=== PATIENT | female | born 1975 | race Caucasian/White ===

== ENCOUNTER → 2017-05-11 08:52 | Outpatient (CLI) | payer OTHER, SELFPAY ==
--- NOTE | 2017-05-11 08:55 | MM_ITS ---
MM Dig screening mamm BI w/CAD CAD Screening ORDERING PHYSICIAN : Fortino Puri MD PATIENT AGE: 41 years GENDER: Female INDICATION: 41-year-old screening mammogram palpable area upper outer quadrant. Previous biopsies bilateral with scars right breast towards the right axillary tail and towards 8:00 breast. Left breast biopsy scar periareolar Family history: Paternal aunt with breast cancer TECHNIQUE: Standard CC and MLO images were obtained. R2 CAD reviewed. COMPARISON: Previous mammograms:February 2016 and January 2015 Also right mammogram from March 2013 studies. FINDINGS: Very dense breast bilaterally decreases sensitivity of mammography. However we see no dominant mass nor suspicious calcifications A nodule at the superior left breast with dense coarse calcifications is again seen and similar to previous studies. 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 RIGHT BREAST:Stable. Small ringlike metallic marker at the 6:00 right breast. Also clips at the right axilla from previous biopsy. Scarring and mild distortion at upper-outer quadrant from such as well. Appears to be most likely long-standing feature after reviewing all available studies. 4 small dense calcifications far superior right breast slight progression since last years study dense focal benign calcifications. Benign configuration & can be followed LEFT BREAST: 11 mm nodule at the superior left breast, measures similar in size to the 2014 study. There is been slight progressive of the coarse dense calcifications here. This is most compatible with a degenerating fibroadenoma ====IMPRESSION: ========= No significant new findings. Dense breast bilaterally Left breast. We again see the ~ 11 mm nodule axillary tail left breast. 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 Can be followed. However if if it should be more evident or progress clinically consider a palpable mass then ultrasound guided or biopsy or excisional biopsy to confirm benign character would be warranted Right breast. No significant new findings. A few dense benign appearing calcifications superiorly can be followed . BI-RADS Category: 2 Benign Finding(s) RECOMMENDED FOLLOW-UP: 1YR - 1 YEAR FOLLOW-UP Follow-up in not over one year recommended a but if palpable area should progress it may warrant interval evaluation (A letter has been sent to the patient regarding results of the study.)
== END ==
PROVIDERS: Family Provider Internal Medicine Adolescent Medicine; PCP Nurse Practitioner Family; Visit Provider Nurse Practitioner Obstetrics & Gynecology
DX: Z12.31 Encounter for screening mammogram for malignant neoplasm of breast (principal)
CPT/HCPCS: 77067

== ENCOUNTER → 2017-07-16 12:49 | Outpatient (CLI) | payer OTHER, SELFPAY ==
--- NOTE | 2017-07-16 12:52 | US_ITS ---
US extremity RT limited CLINICAL INDICATION: ITS.REASON: LUMP RT UPPER ARM ORDERING PHYSICIAN: Flower Marte PATIENT AGE: 41 years FINDINGS: There is reported palpable areas of both forearms . In the right anterior forearm, there is a 1.3 x 0.3 cm subcutaneous area of slight heterogeneous echogenicity. A similar area is noted in the left forearm anteriorly of 1.3 cm x 0.3 cm. This may be due to small lipomas. IMPRESSION: Possible small lipomas forearms
== END ==
PROVIDERS: Family Provider Internal Medicine Adolescent Medicine; PCP Nurse Practitioner Family; Visit Provider Nurse Practitioner Family
DX: R22.31 Localized swelling, mass and lump, right upper limb (principal); R22.32 Localized swelling, mass and lump, left upper limb
CPT/HCPCS: 76882

== ENCOUNTER → 2017-07-29 08:20 | Outpatient (CLI) | payer OTHER, SELFPAY ==
[2017-07-29 08:42] LABS: Basophils % 0.5 % (0.1-2.0); Eosinophils # 0.2 K/mm3 (0.0-0.4); Eosinophils % 3.6 % (0.1-12.0); Hematocrit 37.1 % (37.0-47.0); Hemoglobin 12.1 g/dL (12.2-16.2); Lymphocytes # 2.2 K/mm3 (0.7-4.5); Lymphocytes % 42.5 K/mm3 (10-50); Mean Corpuscular HGB Conc 32.5 g/dL (31.8-35.4); Mean Corpuscular Volume 95.3 fl (81-99); Mean Platelet Volume 8.6 fl (7.4-10.4); Monocytes # 0.3 K/mm3 (0.1-1.0); Monocytes % 6.5 % (1.7-9.3); Neutrophils # 2.4 K/mm3 (1.8-7.8); Neutrophils % 46.9 % (37.0-80.0); Platelet Count 317 K/mm3 (142-424); Red Blood Count 3.89 M/mm3 (4.20-5.40); Red Cell Distribution Width 12.5 % (11.5-17.5); White Blood Count 5.2 K/mm3 (4.8-10.8)
[2017-07-29 10:04] LABS: Alanine Aminotransferase 17 U/L (12-78); Albumin Level 3.5 gm/dL (3.4-5.0); Albumin/Globulin Ratio 0.9 (1.1-1.8); Alkaline Phosphatase 70 U/L (46-116); Aspartate Amino Transferase 14 U/L (15-37); Bilirubin,Total 0.2 mg/dL (0.2-1.0); Blood Urea Nitrogen 7 mg/dL (7-18); Carbon Dioxide 30 mmol/L (21.0-32.0); Chloride 104 mmol/L (98-107); Chol/HDL Ratio 2.5 (1-3.5); Cholesterol 136 mg/dL (140-200); Creatinine,Serum 0.66 mg/dL (0.55-1.02); Estimated Glomerular Filt Rate 99 ml/min (>60); GFR (African American) 119 ML/MIN (>60); Globulin 3.7 gm/dl (1.3-3.2); Glucose 90 mg/dL (74-106); HDL Cholesterol 54 mg/dL (29-89); LDL Cholesterol 71 mg/dL (0-130); Sodium 141 mmol/L (136-145); Total Protein,Serum 7.2 gm/dL (6.4-8.2); Triglycerides 56 mg/dL (30-200); VLDL Cholesterol 11 mg/dL (0-40)
== END ==
PROVIDERS: Visit Provider Nurse Practitioner Obstetrics & Gynecology
DX: Z01.419 Encounter for gynecological examination (general) (routine) without abnormal findings (principal); R53.83 Other fatigue; N93.9 Abnormal uterine and vaginal bleeding, unspecified
CPT/HCPCS: 36415; 80053; 80061; 85025

== ENCOUNTER → 2018-09-07 11:44 | Outpatient (CLI) | payer BC, SELFPAY ==
[2018-09-07 13:36] LABS: Alanine Aminotransferase 22 U/L (12-78); Albumin Level 3.6 gm/dL (3.4-5.0); Albumin/Globulin Ratio 0.9 (1.1-1.8); Alkaline Phosphatase 92 U/L (46-116); Anion Gap 12.7 mEq/L (5-15); Aspartate Amino Transferase 19 U/L (15-37); Bilirubin,Total 0.3 mg/dL (0.2-1.0); Blood Urea Nitrogen 7 mg/dL (7-18); Calcium 8.7 mg/dL (8.5-10.1); Carbon Dioxide 30 mmol/L (21.0-32.0); Chloride 101 mmol/L (98-107); Chol/HDL Ratio 2.6 (1-3.5); Cholesterol 133 mg/dL (140-200); Creatinine,Serum 0.84 mg/dL (0.55-1.02); Estimated Glomerular Filt Rate 74 ml/min (>60); GFR (African American) 90 ML/MIN (>60); Globulin 3.9 gm/dl (1.3-3.2); Glucose 84 mg/dL (74-106); HDL Cholesterol 52 mg/dL (29-89); LDL Cholesterol 67 mg/dL (0-130); Potassium 4.7 mmoL/L (3.5-5.1); Sodium 139 mmol/L (136-145); Total Protein,Serum 7.5 gm/dL (6.4-8.2); Triglycerides 72 mg/dL (30-200); VLDL Cholesterol 14 mg/dL (0-40)
== END ==
PROVIDERS: Visit Provider Nurse Practitioner Family
DX: Z00.00 Encounter for general adult medical examination without abnormal findings (principal); R42 Dizziness and giddiness
CPT/HCPCS: 36415; 80053; 80061

== ENCOUNTER → 2018-10-28 10:34 | Outpatient (CLI) | payer BC, SELFPAY ==
--- NOTE | 2018-10-28 10:37 | MM_ITS ---
PROCEDURE: MM DIG SCREENING MAMM BI W/CAD CLINICAL INDICATION: SCREENING There is a history of breast cancer in the patient's paternal aunt diagnosed at age 22. There has been previous biopsy on each breast for benign disease. COMPARISON: [facility] DIG MAMM-SCREEN JUSTO W/CAD from 03/06/2016 [facility] MM Dig screening mamm BI w/CAD from 05/11/2017 TECHNIQUE: Standard CC and MLO images were obtained. R2 CAD reviewed. FINDINGS: There is a markedly diffusely dense parenchymal pattern lessening the sensitivity of mammography. There is a biopsy clip right breast. There are surgical clips right axilla. There are benign-appearing microcalcifications right breast and there are benign-appearing macrocalcifications left breast. IMPRESSION: BI-RAD Category: FOLLOW-UP: (A letter has been sent to the patient regarding results of the study.) Dictated by: Dr. Olman Dsouza MD 11/02/2018 09:34 Signed by: <Electronically signed by Dr. Olman Dsouza MD in [place]> 11/02/2018 09:34
== END ==
PROVIDERS: PCP Nurse Practitioner Family; Visit Provider Nurse Practitioner Family
DX: Z12.31 Encounter for screening mammogram for malignant neoplasm of breast (principal)
CPT/HCPCS: 77067

== ENCOUNTER → 2019-09-14 08:01 | Outpatient (CLI) | payer BC, SELFPAY ==
--- NOTE | 2019-09-14 08:07 | XR_ITS ---
PROCEDURE: XR FOOT WT BEARING RT 3V CLINICAL INDICATION: pain COMPARISON: No exams were available for comparison FINDINGS: No fracture or dislocation. No lytic or blastic change. There is normal mineralization. The joint spaces are well-preserved. No significant degenerative/arthritic changes. No erosive changes evident. Other findings:There is a toe ring present obscuring the PIP joint of the 2nd digit. There is a type 1 os navicularis IMPRESSION: No acute findings. Dictated by: Reji Magana MD 09/14/2019 15:56 Electronically signed by Reji Magana MD in [place] 09/14/2019 15:56
--- NOTE | 2019-09-14 08:07 | XR_ITS ---
PROCEDURE: XR FOOT WT BEARING LT 3V CLINICAL INDICATION: pain COMPARISON: No exams were available for comparison FINDINGS: No fracture or dislocation. No lytic or blastic change. There is normal mineralization. The joint spaces are well-preserved. No significant degenerative/arthritic changes. No erosive changes evident. Other findings:None. IMPRESSION: No acute findings. Dictated by: Reji Magana MD 09/14/2019 15:57 Electronically signed by Reji Magana MD in [place] 09/14/2019 15:57
== END ==
PROVIDERS: PCP Nurse Practitioner Family; Visit Provider Podiatrist
DX: M79.672 Pain in left foot (principal); M79.671 Pain in right foot
CPT/HCPCS: 73630

== ENCOUNTER → 2019-10-03 11:21 | Outpatient (POV) | payer BC, SELFPAY | PROVIDERS: PCP Nurse Practitioner Family; Visit Provider Dermatology | DX: Z00.00 Encounter for general adult medical examination without abnormal findings (principal) ==

== ENCOUNTER → 2020-09-06 10:47 | Outpatient (CLI) | payer BC, SELFPAY ==
--- NOTE | 2020-09-06 10:51 | MM_ITS ---
PROCEDURE INFORMATION: Exam: MG Screening 3D Mammography Exam date and time: 09/06/2020 10:51 AM Age: 44 years old Clinical indication: Encounter for screening mammogram for malignant neoplasm of breast . Patient reports a palpable lump for 1 week in the left upper outer quadrant TECHNIQUE: Imaging protocol: Screening tomosynthesis and 2D mammography including computer-aided detection (CAD) when performed. COMPARISON: 1. MG MM DIG SCREENING MAMM BI W/CAD 10/28/2018 11:02 AM 2. MG [facility] MM Dig screening mamm BI w/CAD 05/11/2017 9:20 AM 3. MG [facility] DIG MAMM-SCREEN JUSTO W/CAD 03/06/2016 10:02 AM FINDINGS: MAMMOGRAPHY: Breast composition: The breasts are extremely dense, which lowers the sensitivity of mammography. Mass: No new suspicious masses in the right breast. There is a questionable, partially obscured 1.3 cm mass in the region of the patient's palpable lump in the left upper outer quadrant, middle to posterior depth. This is best seen on CC frame 26, MLO frame 13. The palpable lump is marked with a skin marker. Architectural distortion: No suspicious distortion. Calcifications: No suspicious calcifications. Asymmetric density: None. Skin thickening: None. Axillary adenopathy: None. IMPRESSION: Recommend left breast the diagnostic mammogram with spot compression CC/MLO view and ultrasound for further evaluation of a questionable 1.3 cm mass in the region of the patient's palpable lump in the left upper outer quadrant. No definite mammographic evidence of malignancy in the right breast. ASSESSMENT: BI-RADS Category 0: Incomplete- Need Additional Imaging Evaluation and/or Prior Mammograms for Comparison
== END ==
PROVIDERS: PCP Nurse Practitioner Family; Visit Provider Nurse Practitioner Family
DX: Z12.31 Encounter for screening mammogram for malignant neoplasm of breast (principal)
CPT/HCPCS: 77063; 77067

== ENCOUNTER → 2020-10-02 12:52 | Outpatient (CLI) | payer BC, SELFPAY ==
--- NOTE | 2020-10-02 13:01 | MM_ITS ---
PROCEDURE: MM DIG MAMM DX UNILAT LT CAD Digital Breast Tomosynthesis Included CLINICAL INDICATION: ABN MAMM OF LT BREAST COMPARISON: No exams were available for comparison TECHNIQUE: Standard CC and MLO images and 3D Tomosynthesis was obtained. R2 CAD reviewed. FINDINGS: Spot compression views in the MLO and CC projection again shows diffusely dense and heterogenic parenchymal pattern lessening the sensitivity of mammography. However there is a probable asymmetric lesion at the site of the patient's oval lump. Ultrasound showed was probably complex cyst at this location and cyst drainage is recommended. IMPRESSION: Dense and heterogenic parenchymal pattern probable asymmetric density corresponding to the palpable lump BI-RAD Category: 4 Suspicious Abnormality - Biopsy Considered FOLLOW-UP: BIO Biopsy Recommended (A letter has been sent to the patient regarding results of the study.) Dictated by: Dr. Olman Dsouza MD 10/02/2020 14:09 Dr. Olman Dsouza MD in [place] 10/02/2020 14:09
--- NOTE | 2020-10-02 13:01 | US_ITS ---
PROCEDURE: US BREAST LT COMPLETE CLINICAL INDICATION: ABN MAMM OF LT BREAST COMPARISON: MG MM DIG SCREENING MAMM BI W/CAD from 09/06/2020 MG MM DIG MAMM DX UNILAT LT CAD from 10/02/2020 FINDINGS: Targeted ultrasound scanning over the area of the patient's palpable lump shows no oval hypoechoic mass with somewhat heterogenic internal echoes. The lesion measures 1.2 x 0.5 0.4 cm. The surrounding breast parenchyma shows heterogenic appearing rather dense parenchyma consistent with prominent fibrocystic changes. Though this lesion most likely is a complex cyst recommend patient have a follow-up ultrasound guided cyst drainage for diagnostic evaluation. IMPRESSION: Probable complex cyst in this patient with diffusely dense and heterogenic breast parenchyma on mammogram performed the same date and recommend follow-up ultrasound-guided cyst drainage Dictated by: Dr. Olman Dsouza MD 10/02/2020 14:05 Dr. Olman Dsouza MD in [place] 10/02/2020 14:05
== END ==
PROVIDERS: PCP Nurse Practitioner Family; Visit Provider Nurse Practitioner Family
DX: R92.8 Other abnormal and inconclusive findings on diagnostic imaging of breast (principal)
CPT/HCPCS: 76641; 77061; 77065; G0279

== ENCOUNTER → 2021-04-04 12:40 | Outpatient (CLI) | payer BC, SELFPAY | PROVIDERS: Visit Provider Nurse Practitioner | DX: U07.1 COVID-19 (principal) | CPT/HCPCS: C9803; U0003; U0005 ==

== ENCOUNTER → 2021-07-02 13:06 | Outpatient (CLI) | payer BC, SELFPAY ==
--- NOTE | 2021-07-02 13:10 | MM_ITS ---
PROCEDURE INFORMATION: Exam: US Left Breast, Complete MG Bilateral Diagnostic Breast Tomosynthesis Exam date and time: 07/02/2021 1:05 PM Age: 45 years old Clinical indication: Short-term radiographic followup; Left breast TECHNIQUE: Imaging protocol: Complete ultrasound of all four quadrants of the Left breast and the retroareolar regions, including ultrasound of the axilla when performed. Bilateral Diagnostic tomosynthesis and 2D mammography including computer-aided detection (CAD) when performed. Unilateral or bilateral exam. COMPARISON: 1. MG MM DIG MAMM DX UNILAT LT CAD 10/02/2020 1:08 PM 2. US BREAST LT COMPLETE 10/02/2020 1:35 PM 3. MG MM DIG SCREENING MAMM BI W/CAD 09/06/2020 10:53 AM FINDINGS: MAMMOGRAPHY: The breast tissue is extremely dense, which lowers the sensitivity of mammography. There is no stellate mass, architectural distortion or suspicious microcalcifications in either breast to suggest malignancy. Additional spot compression views of the left central breast demonstrate normal overlapping fibroglandular structures. No skin thickening or axillary adenopathy. ULTRASOUND: Sonographic images of the left breast including the retroareolar region, all 4 quadrants and the axilla do not demonstrate any solid or cystic masses. No architectural distortion or acoustical shadowing. Cursors were placed over normal fibroglandular structures in the 2 o'clock axis 2 cm from the nipple. No skin thickening or axillary adenopathy. IMPRESSION: No mammographic or sonographic evidence of malignancy. Annual bilateral mammographic screening is recommended unless otherwise clinically indicated. ASSESSMENT: BI-RADS Category 1: Negative
== END ==
PROVIDERS: PCP Nurse Practitioner Family; Visit Provider Nurse Practitioner Family
DX: R92.8 Other abnormal and inconclusive findings on diagnostic imaging of breast (principal)
CPT/HCPCS: 76641; 77062; 77066; G0279

== ENCOUNTER 2023-05-11 15:03 | Outpatient (CLI) | payer BC, SELFPAY ==
--- NOTE | 2023-05-11 15:07 | MM_ITS ---
PROCEDURE INFORMATION: Exam: MG Bilateral Screening 3D Mammography Exam date and time: 05/11/2023 2:52 PM Age: 47 years old Clinical indication: Screening examination TECHNIQUE: Imaging protocol: Bilateral Screening tomosynthesis and 2D mammography including computer-aided detection (CAD) when performed. COMPARISON: 1. MG MM DIG MAMM BI DX W/CAD 07/02/2021 1:05 PM 2. MG MM DIG MAMM DX UNILAT LT CAD 10/02/2020 1:08 PM 3. MG MM DIG SCREENING MAMM BI W/CAD 09/06/2020 10:53 AM FINDINGS: MAMMOGRAPHY: Breast composition: The breasts are heterogeneously dense, which may obscure small masses. Mass: No suspicious masses. Architectural distortion: No suspicious distortion. Calcifications: No suspicious calcifications. Asymmetric density: None. Skin thickening: None. Axillary adenopathy: None. IMPRESSION: No mammographic evidence of malignancy. Annual screening is recommended unless otherwise clinically indicated. ASSESSMENT: BI-RADS Category 1: Negative
== END 2023-05-11 23:59 ==
LOC: RAD 15:03
PROVIDERS: PCP Nurse Practitioner Family; Visit Provider Nurse Practitioner Family
DX: Z12.31 Encounter for screening mammogram for malignant neoplasm of breast (principal)
CPT/HCPCS: 77063; 77067

== ENCOUNTER 2023-06-15 16:15 | Outpatient (CLI) | payer BC, SELFPAY ==
[2023-06-15 16:37] LABS: Basophils # 0.1 K/mm3 (0-0.2); Basophils % 1.1 % (0.1-2.0); Eosinophils # 0.1 K/mm3 (0.0-0.4); Eosinophils % 0.9 % (0.1-12.0); Hematocrit 31.8 % (37.0-47.0); Hemoglobin 10.1 g/dL (12.2-16.2); Lymphocytes # 2.4 K/mm3 (0.7-4.5); Lymphocytes % 48.5 % (10-50); Mean Corpuscular HGB Conc 31.7 g/dL (31.8-35.4); Mean Corpuscular Hemoglobin 25.3 pg (27.0-31.2); Mean Corpuscular Volume 79.7 fl (81-99); Mean Platelet Volume 8.9 fl (7.4-10.4); Monocytes # 0.3 K/mm3 (0.1-1.0); Monocytes % 6.2 % (1.7-9.3); Neutrophils # 2.1 K/mm3 (1.8-7.8); Neutrophils % 43.3 % (37.0-80.0); Platelet Count 342 K/mm3 (142-424); Red Blood Count 3.99 M/mm3 (4.20-5.40); Red Cell Distribution Width 17.9 % (11.5-17.5); White Blood Count 4.9 K/mm3 (4.8-10.8)
[2023-06-15 17:05] LABS: Alanine Aminotransferase 21 U/L (12-78); Albumin Level 4.5 g/dl (3.5-5.0); Albumin/Globulin Ratio 1.3 (1.1-1.8); Alkaline Phosphatase 70 U/L (38-126); Anion Gap 9.6 mEq/L (5-15); Aspartate Amino Transferase 35 U/L (14-36); Bilirubin,Total 0.2 mg/dl (0.2-1.3); Blood Urea Nitrogen 16 mg/dl (7-17); Calcium 9.5 mg/dl (8.4-10.2); Carbon Dioxide 31 mmol/L (22.0-30.0); Chloride 103 mmol/L (98-107); Chol/HDL Ratio 2.6 (1-3.5); Cholesterol 164 mg/dl (140-200); Estimated Glomerular Filt Rate 90 ml/min (>60); GFR (African American) 109 ML/MIN (>60); Globulin 3.5 g/dL (1.3-3.2); Glucose 90 mg/dl (74-100); HDL Cholesterol 64 mg/dl (40-60); Potassium 4.6 mmoL/L (3.5-5.1); Sodium 139 mmol/L (136-145); Triglycerides 127 mg/dl (30-150); VLDL Cholesterol 25 mg/dL (0-40)
[2023-06-15 17:16] LABS: Direct LDL Cholesterol 69.23 mg/dL (100-129)
[2023-06-15 17:37] LABS: Thyroid Stimulating Hormone 0.21 uIU/mL (0.465-4.68)
[2023-06-17 11:51] LABS: Vitamin B12 558 pg/mL (239-931)
[2023-06-17 12:47] LABS: Iron 31 ug/dL (37-170)
[2023-06-17 12:56] LABS: Total Iron Binding Capacity 427 ug/dL (265-497)
[2023-06-17 13:23] LABS: Ferritin 5.88 ng/ml (6.24-137)
== END 2023-06-15 23:59 ==
LOC: LAB 16:16
PROVIDERS: PCP Nurse Practitioner Family; Visit Provider Nurse Practitioner Family
DX: R53.83 Other fatigue (principal)
CPT/HCPCS: 36415; 80053; 80061; 82607; 82728; 83540; 83550; 84443; 85025

== ENCOUNTER 2023-08-25 13:43 | Outpatient (CLI) | payer BC, SELFPAY ==
[2023-08-25 14:07] LABS: Hematocrit 38.7 % (37.0-47.0); Hemoglobin 12.4 g/dL (12.2-16.2)
== END 2023-08-25 23:59 | disposition home or self-care (01) ==
LOC: LAB 13:44
PROVIDERS: PCP Nurse Practitioner Family; Visit Provider Surgery
DX: D50.9 Iron deficiency anemia, unspecified (principal)
CPT/HCPCS: 36415; 85014; 85018

== ENCOUNTER 2023-09-03 09:44 | Outpatient (CLI) | payer BC, SELFPAY ==
--- NOTE | 2023-09-03 09:45 | FL_ITS ---
FINAL REPORT CLINICAL HISTORY: ademia..unsuccessful colonoscopy 1093.74 dap 1.22 fluoro time FINDINGS: AIR-CONTRAST BARIUM ENEMA HISTORY: Incomplete colonoscopy. PROCEDURE: Single-contrast barium was introduced by gravity drip. Subsequently, the patient was insufflated with air. Spot and overhead films were obtained. FINDINGS: Bulk Plant Operator film is unremarkable. Retained stool limits mucosal detail. No constricting or obstructing lesions are identified to the level of the cecum. The patient has an incompetent ileocecal valve. IMPRESSION: No constricting or obstructing lesions to the level the cecum. Fluoroscopy time: 1.22 minutes Fluoro dose: 1093.74 DAP in uGym2 Films reviewed , interpreted and dictated by Dr. Schroeder. Transcribed by Lg Gilbert PA-C. Reviewed, Interpreted and Dictated by Ben Schroeder MD Transcribed by RAMOS Nolasco Authenticated and [facility]
[2023-09-03] MEDS: BARIUM SULFATE(E-Z-AC);750ML BOTTLE 1500 ML PO (10:57)
== END 2023-09-03 23:59 | disposition home or self-care (01) ==
LOC: RAD 09:45
PROVIDERS: PCP Nurse Practitioner Family; Visit Provider Surgery
DX: D50.9 Iron deficiency anemia, unspecified (principal)
CPT/HCPCS: 74270

== ENCOUNTER 2023-09-10 07:52 | Outpatient (CLI) | payer BC, SELFPAY ==
--- NOTE | 2023-09-10 07:53 | FL_ITS ---
FINAL REPORT CLINICAL HISTORY: anemia 1668.31 dap 3.18 fluoro time FINDINGS: UPPER GI WITH SBFT HISTORY: Anemia. PROCEDURE: The patient ingested barium. Effervescent crystals were also administered. Spot and overhead films were obtained. Additional barium was administered for a SBFT. Number of images: 29 Fluoro time: 3 minutes 18 seconds DAP: 1668.31 uGym2. FINDINGS: UGI: The esophagus is normal. There is a very small hiatal hernia. There is no gastroesophageal reflux. Peristalsis is normal. The rugal fold pattern of the stomach is normal. The duodenal bulb is normal. A 13 mm barium tablet passes of the esophagus and stomach without delay. SBFT: The heel washer stringing machine operator film is normal. There is no evidence of obstruction. The mucosal fold pattern is normal. The terminal ilium is normal. IMPRESSION: Small sliding-type hiatal hernia. Normal SBFT. Films reviewed , interpreted and dictated by Dr. Schroeder. Transcribed by Ishmael Johns PA-C. Reviewed, Interpreted and Dictated by Ben Schroeder MD Transcribed by RAMOS Billings Authenticated and [facility]
[2023-09-10] MEDS: BARIUM SULFATE (E-Z-HD 340GM);135ML BOTTLE 135 ML PO (08:39)
[2023-09-10] MEDS: DIATRIZOATE MEGLUMINE(GASTROGRAFIN) 66%-10% 120ML 120 ML PO (08:39)
[2023-09-10] MEDS: E-Z-GASII EFFERVESCENT GRANULES;1PK 1 EACH PO (08:39)
[2023-09-10] MEDS: BARIUM SULFATE(E-Z-AC);750ML BOTTLE 750 ML PO (08:39)
== END 2023-09-10 23:59 | disposition home or self-care (01) ==
LOC: RAD 07:53
PROVIDERS: PCP Internal Medicine Adolescent Medicine; Visit Provider Surgery
DX: D50.9 Iron deficiency anemia, unspecified (principal)
CPT/HCPCS: 74246; 74248; Q9963

== ENCOUNTER 2024-05-12 16:49 | Outpatient (CLI) | payer BC, SELFPAY ==
--- NOTE | 2024-05-12 16:51 | MM_ITS ---
PROCEDURE INFORMATION: Exam: MG Bilateral Screening 3D Mammography Exam date and time: 05/12/2024 4:53 PM Age: 48 years old Clinical indication: Screening examination TECHNIQUE: Imaging protocol: Bilateral Screening tomosynthesis and 2D mammography including computer-aided detection (CAD) when performed. COMPARISON: 1. MG MM DIG SCREENING MAMM BI W/CAD 05/11/2023 2:52 PM 2. MG MM DIG MAMM BI DX W/CAD 07/02/2021 1:05 PM FINDINGS: MAMMOGRAPHY: Breast composition: The breasts are heterogeneously dense, which may obscure small masses. Mass: No suspicious masses. Architectural distortion: None. Calcifications: No suspicious calcifications. Asymmetric density: None. Skin thickening: None. Axillary adenopathy: None. IMPRESSION: No mammographic evidence of malignancy. Annual screening is recommended unless otherwise clinically indicated. ASSESSMENT: BI-RADS Category 1: Negative.
== END 2024-05-12 23:59 | disposition home or self-care (01) ==
LOC: RAD 16:49
PROVIDERS: PCP Internal Medicine Adolescent Medicine; Visit Provider Nurse Practitioner Family
DX: Z12.31 Encounter for screening mammogram for malignant neoplasm of breast (principal)
CPT/HCPCS: 77063; 77067

== ENCOUNTER 2024-05-14 10:58 | Outpatient (CLI) | payer BC, SELFPAY ==
[2024-05-14 12:30] LABS: Basophils % 0.7 % (0.1-2.0); Eosinophils % 0.7 % (0.1-12.0); Hematocrit 42.8 % (37.0-47.0); Hemoglobin 14.6 g/dL (12.2-16.2); Lymphocytes # 1.5 K/mm3 (0.7-4.5); Lymphocytes % 26.8 % (10-50); Mean Corpuscular HGB Conc 34.1 g/dL (31.8-35.4); Mean Corpuscular Hemoglobin 30.7 pg (27.0-31.2); Mean Corpuscular Volume 89.9 fl (81-99); Mean Platelet Volume 11.3 fl (7.4-10.4); Monocytes # 0.4 K/mm3 (0.1-1.0); Monocytes % 8.1 % (1.7-9.3); Neutrophils # 3.5 K/mm3 (1.8-7.8); Neutrophils % 63.5 % (37.0-80.0); Platelet Count 272 K/mm3 (142-424); Red Blood Count 4.76 M/mm3 (4.20-5.40); Red Cell Distribution Width 11.4 % (11.5-17.5); White Blood Count 5.4 K/mm3 (4.8-10.8)
[2024-05-14 12:46] LABS: Albumin Level 4.4 g/dl (3.5-5.0); Chloride 101 mmol/L (98-107); Potassium 4.3 mmoL/L (3.5-5.1); Sodium 139 mmol/L (136-145)
[2024-05-14 12:49] LABS: Alanine Aminotransferase 23 U/L (12-78); Albumin/Globulin Ratio 1.2 (1.1-1.8); Alkaline Phosphatase 63 U/L (38-126); Anion Gap 7.3 mEq/L (5-15); Aspartate Amino Transferase 39 U/L (14-36); Bilirubin,Total 0.6 mg/dl (0.2-1.3); Blood Urea Nitrogen 19 mg/dl (7-17); Calcium 9.1 mg/dl (8.4-10.2); Carbon Dioxide 35 mmol/L (22.0-30.0); Chol/HDL Ratio 2.4 (1-3.5); Cholesterol 158 mg/dl (140-200); Estimated Glomerular Filt Rate 77 ml/min (>60); GFR (African American) 93 ML/MIN (>60); Globulin 3.7 g/dL (1.3-3.2); Glucose 101 mg/dl (74-100); HDL Cholesterol 66 mg/dl (40-60); Total Protein,Serum 8.1 g/dl (6.3-8.2); Triglycerides 48 mg/dl (30-150); VLDL Cholesterol 10 mg/dL (0-40)
[2024-05-14 13:00] LABS: Direct LDL Cholesterol 59.43 mg/dL (100-129)
[2024-05-16 09:20] LABS: Iron 114 ug/dL (37-170)
[2024-05-16 09:31] LABS: Total Iron Binding Capacity 344 ug/dL (265-497)
== END 2024-05-14 23:59 | disposition home or self-care (01) ==
LOC: LAB 10:59
PROVIDERS: PCP Internal Medicine Adolescent Medicine; Visit Provider Nurse Practitioner Family
DX: R79.89 Other specified abnormal findings of blood chemistry (principal); D50.9 Iron deficiency anemia, unspecified
CPT/HCPCS: 36415; 80053; 80061; 83540; 83550; 84443; 85025

== ENCOUNTER 2024-12-07 16:16 | Outpatient (CLI) | payer BC, SELFPAY ==
[2024-12-07 16:51] LABS: Hematocrit 34.3 % (37.0-47.0); Hemoglobin 11.7 g/dL (12.2-16.2); Immature Granulocytes % 0.4 %; Mean Corpuscular HGB Conc 34.1 g/dL (31.8-35.4); Mean Corpuscular Hemoglobin 31.0 pg (27.0-31.2); Mean Corpuscular Volume 90.7 fl (81-99); Nucleated Red Blood Cells % 0 %; Platelet Count 245 K/mm3 (142-424); Red Blood Count 3.78 M/mm3 (4.20-5.40); Red Cell Distribution Width-SD 39.8 fL; White Blood Count 5.0 K/mm3 (4.8-10.8)
[2024-12-07 18:17] LABS: Albumin Level 3.9 g/dl (3.5-5.0); Chloride 99 mmol/L (98-107); Potassium 4.4 mmoL/L (3.5-5.1); Sodium 137 mmol/L (136-145)
[2024-12-07 18:20] LABS: Alanine Aminotransferase 17 U/L (12-78); Albumin/Globulin Ratio 1.3 (1.1-1.8); Alkaline Phosphatase 62 U/L (38-126); Anion Gap 10.4 mEq/L (5-15); Aspartate Amino Transferase 28 U/L (14-36); Bilirubin,Total 0.4 mg/dl (0.2-1.3); Blood Urea Nitrogen 10 mg/dl (7-17); Carbon Dioxide 32 mmol/L (22.0-30.0); Creatinine,Serum 0.70 mg/dl (0.52-1.04); Estimated Glomerular Filt Rate 89 ml/min (>60); GFR (African American) 108 ML/MIN (>60); Globulin 3.1 g/dL (1.3-3.2); Iron 65 ug/dL (37-170); Total Protein,Serum 7.0 g/dl (6.3-8.2)
[2024-12-07 18:21] LABS: Calcium 9.1 mg/dl (8.4-10.2); Glucose 93 mg/dl (74-100)
[2024-12-07 18:30] LABS: Total Iron Binding Capacity 311 ug/dL (265-497)
[2024-12-07 18:51] LABS: Thyroid Stimulating Hormone 1.89 uIU/mL (0.465-4.68)
[2024-12-07 19:19] LABS: Vitamin B12 575 pg/mL (239-931)
== END 2024-12-07 23:59 | disposition home or self-care (01) ==
LOC: LAB 16:16
PROVIDERS: PCP Nurse Practitioner Family; Visit Provider Nurse Practitioner Family
DX: D50.9 Iron deficiency anemia, unspecified (principal); I10 Essential (primary) hypertension
CPT/HCPCS: 36415; 80053; 82607; 83540; 83550; 84443; 85025